=== PATIENT | male | born 1940 | race Caucasian/White ===

== ENCOUNTER 2019-07-03 10:43 | Observation (INO) | payer MEDICARE ==
[2019-07-03 11:07] LABS: ADD MAN DIFF? NO
[2019-07-03 11:09] LABS: BASOPHILS % 0.4 % (0.0-2.0); EOSINOPHILS # 0.3 10^3/ul (0.0-0.5); EOSINOPHILS % 6.5 % (0.0-7.0); HEMATOCRIT 39.4 % (42.0-52.0); HEMOGLOBIN 12.8 g/dl (14.0-18.0); LYMPHOCYTES # 0.9 10^3/ul (0.8-2.9); LYMPHOCYTES % 18.7 % (15.0-51.0); MEAN CORPUSCULAR HEMOGLOBIN 30.2 pg (29.0-33.0); MEAN CORPUSCULAR HGB CONC 32.5 g/dl (32.0-37.0); MEAN CORPUSCULAR VOLUME 92.9 fl (82.0-101.0); MEAN PLATELET VOLUME 11.2 fl (7.4-10.4); MONOCYTE # 0.4 10^3/ul (0.3-0.9); MONOCYTES % 7.9 % (0.0-11.0); NEUTROPHIL # 3.3 10^3/ul (1.6-7.5); NEUTROPHILS % 66.1 % (39.0-77.0); PLATELET COUNT 129 10^3/UL (140-415); POSITIVE DIFF @See below; RED BLOOD COUNT 4.24 10^6/ul (4.70-6.10); RED CELL DISTRIBUTION WIDTH 13.6 % (11.5-14.5)
[2019-07-03 11:09] LABS: WHITE BLOOD COUNT 4.9 10^3/ul (4.8-10.8)
[2019-07-03 11:45] LABS: ANION GAP 5 (5-13); BLOOD UREA NITROGEN 20 mg/dl (7-20); CALCIUM 9.1 mg/dl (8.4-10.2); CARBON DIOXIDE 26 mmol/L (21-31); CHLORIDE 107 mmol/L (97-110); CREATININE 1.05 mg/dl (0.61-1.24); GLUCOSE 108 mg/dl (70-220); POTASSIUM 4.4 mmol/L (3.5-5.1); SODIUM 138 mmol/L (135-144)
[2019-07-03 11:57] LABS: TROPONIN-I < 0.012 ng/ml (0.000-0.120)
[2019-07-03] MEDS ORDERED: ONDANSETRON 4 MG INJ IV (14:30)
[2019-07-03] MEDS ORDERED: ACETAMINOPHEN 325 MG TAB PO (14:30)
[2019-07-03 15:12] LABS: CREATINE KINASE 55 IU/L (23-200)
[2019-07-03 15:23] LABS: CK INDEX 1.2
[2019-07-03 15:25] LABS: TROPONIN-I < 0.012 ng/ml (0.000-0.120)
[2019-07-03 15:33] LABS: CK-MB 0.64 ng/ml (0.0-2.4)
[2019-07-03] MEDS: REGADENOSON 0.4 MG/5 ML SYG (16:12)
[2019-07-03 16:32] LABS: HEMOGLOBIN A1C 5.7 % (0-5.9)
[2019-07-03 16:49] LABS: FREE T4 (FREE THYROXINE) 2.09 ng/dl (0.78-2.44)
[2019-07-03 17:04] LABS: THYROID STIMULATING HORMONE < 0.015 MIU/L (0.465-4.680)
[2019-07-03] MEDS ORDERED: ATORVASTATIN 10 MG TAB PO (21:00)
[2019-07-03] MEDS ORDERED: traZODone 100 MG TAB PO (21:00)
[2019-07-04] MEDS ORDERED: LEVOTHYROXINE 100 MCG TAB PO (07:00)
[2019-07-04] MEDS ORDERED: RIVAROXABAN 20 MG TABLET PO (09:00)
[2019-07-04] MEDS ORDERED: LOSARTAN 50 MG TAB PO (09:00)
[2019-07-04] MEDS ORDERED: LAMOTRIGINE 100 MG TAB PO (09:00)
[2019-07-04] MEDS ORDERED: FINASTERIDE 5 MG TAB PO (09:00)
== END 2019-07-03 18:10 | disposition home or self-care (01) ==
LOC: TEL 17:10 → E/R 10:43 → TEL 14:18
DX: R07.9 Chest pain, unspecified (principal); I10 Essential (primary) hypertension; E78.00 Pure hypercholesterolemia, unspecified; I48.91 Unspecified atrial fibrillation; E03.9 Hypothyroidism, unspecified; N40.0 Benign prostatic hyperplasia without lower urinary tract symptoms; Z85.850 Personal history of malignant neoplasm of thyroid; E78.5 Hyperlipidemia, unspecified; F31.9 Bipolar disorder, unspecified; K22.2 Esophageal obstruction; Z79.01 Long term (current) use of anticoagulants
CPT/HCPCS: 36415; 71045; 78452; 80048; 82550; 82553; 83036; 84439; 84443; 84484; 85025; 93005; 93017; 93306; 99285-25; G0378